=== PATIENT | female | born 1990 | race Caucasian/White ===

== ENCOUNTER 2022-06-17 16:28 | Emergency (ER) | payer OTHER, SELFPAY ==
[2022-06-17 16:41] VITALS: BP 102/78; PULSE 120; RESP 18; TEMP 36.7; O2SAT 97; BMI 22.7
[2022-06-17] MEDS: ONDANSETRON 4 MG/2 ML INJ IV (17:13)
[2022-06-17] MEDS: SODIUM CHLORIDE 0.9% 1,000 ML 1000 ML IV ×3 (17:14→23:25)
[2022-06-17 17:31] LABS: Alanine Aminotransferase 29 IU/L (<35); Albumin 4.3 g/dL (3.5-5.0); Albumin Globulin Ratio 1.2 (1.0-2.8); Alkaline Phosphatase 55 U/L (38-126); Aspartate Aminotransferase 36 IU/L (14-36); BUN Creatinine Ratio 24.4 (6-22); Bilirubin Total 0.8 mg/dL (0.2-1.3); Blood Urea Nitrogen 10 mg/dL (7-17); Calcium 8.9 mg/dL (8.4-10.2); Carbon Dioxide 21 mmol/L (22-32); Chloride 100 mmol/L (98-107); Estimated Glomerular Filt Rate > 60 mL/min (>60); Globulin 3.6 g/dL (1.7-4.1); Glucose 101 mg/dL (70-100); HEMOLYSIS 46 (0-50); Lipase 82 U/L (23-300); Potassium 3.3 mmol/L (3.4-5.1); Sodium 135 mmol/L (137-145); Total Protein 7.9 g/dL (6.3-8.2)
[2022-06-17 17:34] LABS: Ketones (Beta-Hydroxybutyrate) 2.41 mmol/L (<0.27)
[2022-06-17 17:42] LABS: Add Manual Diff / Slide Review NO; Basophils Absolute Auto 0 /uL (0-100); Basophils Percent Auto 0.5 % (0-2); Eosinophils Absolute Auto 0 /uL (0-450); Eosinophils Percent Auto 0.1 % (2-4); Hematocrit 39.5 % (36-46); Hemoglobin 13.8 g/dL (12.0-16.0); Lymphocytes Absolute Auto 1300 /uL (1100-4500); Lymphocytes Percent Auto 13.2 % (25-40); Mean Corpuscular HGB Conc 34.8 % (30-36); Mean Corpuscular Hemoglobin 30.7 PG (26-34); Mean Corpuscular Volume 88.2 fL (80-100); Monocytes Absolute Auto 500 /uL (0-900); Monocytes Percent Auto 4.5 % (3-14); Neutrophils Absolute Auto 8200 /uL (1500-7000); Neutrophils Percent Auto 81.7 % (50-75); Platelet Count 181 X10^3/uL (150-400); Red Blood Cell Count 4.48 X10^6/uL (4.0-5.2); Red Cell Distribution Width 12.8 % (11.6-14.8)
[2022-06-17] MEDS: METOCLOPRAMIDE 10 MG/2 ML INJ IV (18:54)
[2022-06-17 18:58] VITALS: BP 109/59; PULSE 90; RESP 18; TEMP 36.8; O2SAT 99
[2022-06-17 22:00] VITALS: BP 107/56; PULSE 75; RESP 20; O2SAT 98
[2022-06-17 22:18] LABS: Ictotest Urine Negative (Negative)
[2022-06-17 22:26] LABS: Amorphous Sediment Urine 1+; Bacteria Urine Occasional (0-1); Culture Indicated Urine Specimen Cultured; RBC Urine 0-1/HPF (0-5/HPF); WBC Urine 5-10/HPF (0-5/HPF)
--- NOTE | 2022-06-17 22:48 | ED_ITS ---
HPI - Nausea/Vomiting/Diarrhea General Chief complaint: Nausea/Vomiting/Diarrhea Stated complaint: vomiting, end of 1st trimester Time Seen by Provider: 06/17/22 17:16 Source: patient and family Mode of arrival: Wheelchair Limitations: no limitations History of Present Illness HPI Narrative: This is a G 3p1 female who is 10 weeks by dates with history of hyperemesis and following with Dr. Parikh at [facility]. Patient states she is been having persistent nausea and vomiting since she found out she is she is been using home Zofran and tried to promethazine suppositories today with persis tent vomiting she is had weight loss from 170 lb down to 140 according to the patient. She denies fevers or chills she felt dizzy and lightheaded today persistent nausea and vomiting denies chest pain or shortness of breath, denies cold cough or congestion. She states no diarrhea. She feels like those rocks in her belly all over but denies any vaginal bleeding or discharge. She denies dysuria urgency or frequency. She states she was on metronidazole intravaginal for Gardnerella and then developed a yeast infection and was on Monistat intravaginal. She states she could not tolerate the oral metronidazole. She denies other medical issues, she is not currently on prenatals she just vomits them up, she denies surgeries. She states she is alert and amoxicillin and penicillin. No tobacco, alcohol no active meet THC use but used to the very beginning of . Related Data Previous Rx's Medication Instructions Recorded metoclopramide HCl 10 mg tablet 10 mg PO Q6H PRN nausea and 06/18/22 (Reglan) vomiting #14 tabs Allergies Allergy/AdvReac Type Severity Reaction Status Date / Time SEAFOOD Allergy Unknown ALL Uncoded 10/12/17 12:21 SEAFOOD MAKES THORAT SWELL Review of Systems Review of Systems ROS Unobtainable: All systems reviewed & are unremarkable except as noted in HPI and below Patient History Substance Use Type: marijuana Exam Narrative Exam Narrative: GENERAL: Alert and oriented x three, well-appearing female in mild distress. HEENT: Head normocephalic, atraumatic, EOMI, pupils reactive, face symmetric, moist mucous membranes NECK: Supple, full range of motion CARDIOVASCULAR: Regular rate and rhythm without murmurs, rubs or gallops. RESPIRATORY: Breath sounds equal bilaterally, no wheezes rales or rhonchi. ABDOMEN: Soft, nontender to palpation. Normoactive bowel sounds all 4 quadrants. No guarding or rebound, rigidity, no mass : No CVA tenderness EXTREMITIES: Normal range of motion, no clubbing or edema. Neurovascularly intact NEUROLOGICAL: Cranial nerves II through XII grossly intact. Moving all extr emities SKIN: Warm, dry, no petechiae, no rashes or lesions. Initial Vital Signs Initial Vital Signs: Vital Signs Temperature 98.1 F 06/17/22 16:41 Pulse Rate 120 H 06/17/22 16:41 Respiratory Rate 18 06/17/22 16:41 Blood Pressure 102/78 06/17/22 16:41 Pulse Oximetry 97 06/17/22 16:41 Oxygen Delivery Method 06/17/22 16:41 Course Orders Ordered: Discontinued Medications Acetaminophen (Acetaminophen 325 Mg Tablet) 975 mg PO NOW ONE Stop: 06/17/22 23:04 Last Admin: 06/17/22 23:23 Dose: 975 mg Documented By: DAGMAR Sodium Chloride (Normal Saline 0.9%) 1,000 mls @ 1,000 mls/hr IV BOLUS ONE Stop: 06/17/22 18:08 Last Infusion: 06/17/22 18:20 Dose: 0 mls/hr Documented By: Admin: 06/17/22 17:14 Dose: 1,000 mls/hr Documented By: FREDY Sodium Chloride (Normal Saline 0.9%) 1,000 mls @ 1,000 mls/hr IV BOLUS ONE Stop: 06/17/22 19:42 Last Infusion: 06/17/22 20:00 Dose: 0 mls/hr Documented By: Admin: 06/17/22 18:54 Dose: 1,000 mls/hr Documented By: FREDY Sodium Chloride (Normal Saline 0.9%) 1,000 mls @ 1,000 mls/hr IV BOLUS ONE Stop: 06/18/22 00:02 Last Infusion: 06/18/22 00:50 Dose: 0 mls/hr Documented By: Admin: 06/17/22 23:25 Dose: 1,000 mls/hr Documented By: DAGMAR Metoclopramide HCl (Metoclopramide 10 Mg/2 Ml Inj) 10 mg IV NOW ONE Stop: 06/17/22 18:44 Last Admin: 06/17/22 18:54 Dose: 10 mg Documented By: FREDY Ondansetron HCl (Ondansetron 4 Mg/2 Ml Inj) 4 mg IV NOW PRN PRN Reason: Nausea And Vomiting Last Admin: 06/17/22 17:13 Dose: 4 mg Documented By: FREDY Ondansetron HCl (Ondansetron 4 Mg Odt) 4 mg SL NOW PRN PRN Reason: Nausea And Vomiting Vital Signs Vital signs: Vital Signs - 8 hr 06/17/22 18:58 06/17/22 22:00 06/18/22 00:28 Temperature 98.2 F Pulse Rate 90 75 Respiratory Rate 18 20 Blood Pressure 109/59 L 107/56 L 96/51 L Pulse Oximetry 99 98 Oxygen Delivery Method Room Air Room Air 06/18/22 00:28 06/18/22 00:30 06/18/22 00:30 Temperature Pulse Rate 74 76 Respiratory Rate Blood Pressure 101/57 L Pulse Oximetry 98 98 Oxygen Delivery Method MDM - Nausea/Vomiting/Diarrhea Lab Data Result diagrams: 06/17/22 17:00 06/17/22 17:00 Labs: Lab Results 06/17/22 06/17/22 06/17/22 Range/Units 17:00 17:00 17:00 WBC 10.0 (4.5-11.0) X10^3/uL RBC 4.48 (4.0-5.2) X10^6/uL Hgb 13.8 (12.0-16.0) g/dL Hct 39.5 (36-46) % MCV 88.2 (80-100) fL MCH 30.7 (26-34) PG MCHC 34.8 (30-36) % RDW 12.8 (11.6-14.8) % Plt Count 181 (150-400) X10^3/uL Neut % (Auto) 81.7 H (50-75) % Lymph % (Auto) 13.2 L (25-40) % Adams % (Auto) 4.5 (3-14) % Eos % (Auto) 0.1 L (2-4) % Baso % (Auto) 0.5 (0-2) % Neut # (Auto) 8200 H (3968-2908) /uL Lymph # (Auto) 1300 (9176-2887) /uL Adams # (Auto) 500 (0-900) /uL Eos # (Auto) 0 (0-450) /uL Baso # (Auto) 0 (0-100) /uL Sodium 135 L (137-145) mmol/L Potassium 3.3 L (3.4-5.1) mmol/L Chloride 100 (98-107) mmol/L Carbon Dioxide 21 L (22-32) mmol/L BUN 10 (7-17) mg/dL Creatinine 0.41 L (0.52-1.04) mg/dL Estimated GFR > 60 (>60) mL/min BUN/Creatinine Ratio 24.4 H (6-22) Glucose 101 H (70-100) mg/dL Calcium 8.9 (8.4-10.2) mg/dL Total Bilirubin 0.8 (0.2-1.3) mg/dL AST 36 (14-36) IU/L ALT 29 (<35) IU/L Alkaline Phosphatase 55 (38-126) U/L Total Protein 7.9 (6.3-8.2) g/dL Albumin 4.3 (3.5-5.0) g/dL Globulin 3.6 (1.7-4.1) g/dL Albumin/Globulin Ratio 1.2 (1.0-2.8) Lipase 82 (23-300) U/L Ur Bilirubin Confirm (Negative) Urine RBC (0-5/HPF) Urine WBC (0-5/HPF) Amorphous Sediment Urine Bacteria (None) Ur Culture Indicated? Ketones 2.41 H (<0.27) mmol/L 06/17/22 06/17/22 Range/Units 22:11 22:11 WBC (4.5-11.0) X10^3/uL RBC (4.0-5.2) X10^6/uL Hgb (12.0-16.0) g/dL Hct (36-46) % MCV (80-100) fL MCH (26-34) PG MCHC (30-36) % RDW (11.6-14.8) % Plt Count (150-400) X10^3/uL Neut % (Auto) (50-75) % Lymph % (Auto) (25-40) % Adams % (Auto) (3-14) % Eos % (Auto) (2-4) % Baso % (Auto) (0-2) % Neut # (Auto) (1270-7600) /uL Lymph # (Auto) (1279-6783) /uL Adams # (Auto) (0-900) /uL Eos # (Auto) (0-450) /uL Baso # (Auto) (0-100) /uL Sodium (137-145) mmol/L Potassium (3.4-5.1) mmol/L Chloride (98-107) mmol/L Carbon Dioxide (22-32) mmol/L BUN (7-17) mg/dL Creatinine (0.52-1.04) mg/dL Estimated GFR (>60) mL/min BUN/Creatinine Ratio (6-22) Glucose (70-100) mg/dL Calcium (8.4-10.2) mg/dL Total Bilirubin (0.2-1.3) mg/dL AST (14-36) IU/L ALT (<35) IU/L Alkaline Phosphatase (38-126) U/L Total Protein (6.3-8.2) g/dL Albumin (3.5-5.0) g/dL Globulin (1.7-4.1) g/dL Albumin/Globulin Ratio (1.0-2.8) Lipase (23-300) U/L Ur Bilirubin Confirm Negative (Negative) Urine RBC 0-1/hpf (0-5/HPF) Urine WBC 5-10/hpf H (0-5/HPF) Amorphous Sediment 1+ Urine Bacteria Occasional (0-1) (None) Ur Culture Indicated? Specimen cultured Ketones (<0.27) mmol/L Point of Care Testing Test Results Positive Urine Dip Bedside Urine Glucose Negative Bedside Urine Bilirubin + 1 Bedside Urine Ketone +++ 80 Urine Specific [place] 1.03 Bedside Urine Occult Blood - Negative Bedside Urine pH 6 Bedside Urine Protein + 30 Bedside Urine Urobilinogen +/- 1mg Bedside Urine Nitrite - Negative Bedside Urine Leukocytes - Negative Esterase Imaging Data US - OB: Radiologist's Impression: Close Ultrasound (Signed) Joselo Lau - 06/17/22 Launch?[address] [address] Ultrasound Report Signed Patient: Sherri Ruggiero MR#: [id number] : 1990 Acct:[id number] Age/Sex: 31 / F Date of Service: 06/17/22 Loc: ED Accession Number: [id number] ?? Procedure: US OB <= 14 weeks fetus Ordering Provider: Flavia Sutherland D.O. PROCEDURE:? US OB <= 14 WEEKS FETUS ? INDICATIONS:? ABDOMINAL PAIN AND VOMITING ? OUTSIDE/PRIOR DATING DATA:? Last menstrual period (LMP):? 04/10/2022.? LMP-based estimated date of delivery (BILLY):? 01/15/2023.? First dating scan (date and location):? 06/18/2022.? Estimated date of delivery (BILLY) from first dating scan:? 01/09/2023 The calculations are made using the working BILLY of 01/15/2023. ? TECHNIQUE:? Real-time scanning was performed of the fetus and maternal pelvic organs, with image documentation.? Endovaginal scanning was also performed to better visualize the fetus and maternal ovaries.? ? COMPARISON:? None from current . ? FINDINGS:? ? Embryo:? There is a single intrauterine .? [place]-rump length measures 3.7 cm corresponding to a gestational age of 10 weeks 4 days.? There is a small crescentic subchorionic hematoma measuring approximately 2.5 x 0.4 x 0.4 cm.. Heart rate:? 169 beats per minute. ? Maternal organs:? Ovaries appear within normal size limits.? There is a probable corpus luteal cyst within the right ovary measuring approximately 1.5 x 1.1 cm.? No adnexal masses.? ? ? IMPRESSION:? ? 1. Single living intrauterine demonstrated. ? 2. Small subchronic hematoma.? Recommend clinical follow-up and repeat ultrasound if indicated. ? ? ? We strive to produce accurate, complete, and clear reports of imaging services. To assist us in improving patient care, this report was composed using standard report templates and voice recognition software. Therefore, it may contain abnormal punctuation, insertions and/or omissions. Occasional wrong-word or sound-alike substitutions may occur. Though we review the report and make efforts to correct it, we do recommend that the report be read carefully in proper context to recognize any text inaccuracies. ? Dictated by: Joselo Lau M.D. on 06/18/2022 at 1:10 ? ? Approved by: Joselo Lau M.D. on 06/18/2022 at 1:17?? [facility] Narrative Medical decision making narrative: This is a 31-year-old female with a history of hyperemesis and prior who is currently about 10 weeks in her current she is established with an physician relations specialist at [facility] she is tried Zofran at home as well as promethazine suppositories with persistent vomiting potassium is slightly low at 3.3 she has ketones and had 5-10 wbc's but CMP CBC are otherwise overall reassuring with no acute renal changes her LFTs are negative with no changes to AST ALT or lipase, glucose is 101, she does not have nitrates or leuks in her urine but had 5-10 wbc's. Patient was initially tachycardic at 1:20 a.m. hypo tensive with a 105 range she improved after 2 L of fluid to normal heart rate she continues to have lower blood pressure. She states she was not tolerating orals before the Reglan she had not tried afterwards and after oral challenge Patient also notes that she has not had an OB ultrasound in his complaining of abdominal pain and a vaginal bleeding and ultrasound was obtained to rule out ectopic or molar . Ultrasound shows a small chorionic hemorrhage, intravaginal consistent with patient states is present. Patient is feeling improved. Plan for follow-up with her physician relations specialist and prescription for Reglan given. 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 Discharge Plan Departure Patient Disposition: Home Clinical Impression: Hyperemesis arising during Instructions: DI for Hyperemesis Gravidarum Activity Restrictions/Additional Instructions: Please follow-up with your OBGYN, call tomorrow. I hope you continue to feel better. Your ultrasound does show a small subchorionic hemorrhage that is 2.5 x 0.4 x 0.4 cm. It also shows your gestational age is 10 weeks and 4 days. You may take Reglan 1 tablet every 6 hours as needed for nausea. Prescription sent to [facility] in [place]. Please return for rapidly worsening symptoms, fevers, persistent vomiting, lightheadedness or passing out, new or worsening abdominal pain, vaginal bleeding or other new or concerning changes. Prescriptions: New metoclopramide HCl [Reglan] 10 mg tablet 10 mg PO Q6H PRN (Reason: nausea and vomiting) Qty: 14 0RF Stand Alone Forms: Work Release Note Visit Report Forms: Patient Portal/API
--- NOTE | 2022-06-17 23:03 | DI.US.S_ITS ---
PROCEDURE: US OB <= 14 WEEKS FETUS INDICATIONS: ABDOMINAL PAIN AND VOMITING OUTSIDE/PRIOR DATING DATA: Last menstrual period (LMP): 04/10/2022. LMP-based estimated date of delivery (BILLY): 01/15/2023. First dating scan (date and location): 06/18/2022. Estimated date of delivery (BILLY) from first dating scan: 01/09/2023 The calculations are made using the working BILLY of 01/15/2023. TECHNIQUE: Real-time scanning was performed of the fetus and maternal pelvic organs, with image documentation. Endovaginal scanning was also performed to better visualize the fetus and maternal ovaries. COMPARISON: None from current . FINDINGS: Embryo: There is a single intrauterine . [place]-rump length measures 3.7 cm corresponding to a gestational age of 10 weeks 4 days. There is a small crescentic subchorionic hematoma measuring approximately 2.5 x 0.4 x 0.4 cm.. Heart rate: 169 beats per minute. Maternal organs: Ovaries appear within normal size limits. There is a probable corpus luteal cyst within the right ovary measuring approximately 1.5 x 1.1 cm. No adnexal masses. IMPRESSION: 1. Single living intrauterine demonstrated. 2. Small subchronic hematoma. Recommend clinical follow-up and repeat ultrasound if indicated. We strive to produce accurate, complete, and clear reports of imaging services. To assist us in improving patient care, this report was composed using standard report templates and voice recognition software. Therefore, it may contain abnormal punctuation, insertions and/or omissions. Occasional wrong-word or sound-alike substitutions may occur. Though we review the report and make efforts to correct it, we do recommend that the report be read carefully in proper context to recognize any text inaccuracies. Dictated by: Joselo Lau M.D. on 06/18/2022 at 1:10 Approved by: Joselo Lau M.D. on 06/18/2022 at 1:17
[2022-06-17] MEDS: ACETAMINOPHEN 325 MG TABLET 975 MG PO (23:23)
[2022-06-18 00:28] VITALS: BP 96/51; PULSE 74; O2SAT 98
[2022-06-18 00:30] VITALS: BP 101/57; PULSE 76; O2SAT 98
[2022-06-18 01:00] VITALS: PULSE 72; O2SAT 97
[2022-06-18 01:30] VITALS: PULSE 83; O2SAT 97
[2022-06-18 02:00] VITALS: BP 102/60; PULSE 82; RESP 16; TEMP 36.6; O2SAT 98
== END 2022-06-18 02:04 | disposition home or self-care (01) ==
PROVIDERS: Emergency Medicine; Emergency Provider Emergency Medicine; Family Provider Physician Assistant
DX: O21.0 Mild hyperemesis gravidarum (principal); O20.8 Other hemorrhage in early pregnancy; Z3A.10 10 weeks gestation of pregnancy
CPT/HCPCS: 36415; 76801; 76817; 80053; 81003; 81015; 81025; 82009; 83690; 85025; 87077; 87086; 87147; 96374; 96375; 99284; J2405; J2765